=== PATIENT | female | born 1975 | race Caucasian/White ===

== ENCOUNTER 2022-12-16 06:55 | Day surgery (SDC) | payer OTHER ==
[~2022-12-16] VITALS: Ht 160 cm; Wt 56.7 kg
[2022-12-16] VITALS (224 sets, daily range): BP systolic 82–134; BP diastolic 42–87
[2022-12-16 07:51] LABS: BASO% 0.5 % (0-3); EOS% 4.3 % (0-8); HEMATOCRIT 45.1 % (37.0-47.0); HEMOGLOBIN 14.4 g/dl (12.0-16.0); IMMATURE GRANULOCYTES 0.2 % (0.0-5.0); LYMPH% 22.7 % (15-41); MEAN CELL VOLUME 96.2 fL CALC (80.0-100.0); MEAN CORPUSCULAR HGB 30.7 pG CALC (26.0-32.0); MEAN CORPUSCULAR HGB CONC 31.9 g/dL CAL (32.0-36.0); MONO% 7.1 % (2-13); NEUT# 3.93 thou/uL (2.00-7.15); NEUT% 65.2 % (42-76); RED BLOOD COUNT 4.69 mill/uL (4.20-5.60); RED CELL DISTRI WIDTH 12.1 % (11.5-15.5)
[2022-12-16 09:53] LABS: ALBUMIN 4.7 g/dL (3.2-5.0); ALKALINE PHOSPHATASE 64 u/l (38-126); ANION GAP 13 (6-22 (CALC)); BILIRUBIN, TOTAL 0.5 mg/dL (0.02-1.3); BUN 15 mg/dL (7-17); BUN/CREATININE RATIO 15 (12-20 (CALC)); CARBON DIOXIDE 29 mmol/l (22-30); CHLORIDE 102 mmol/l (95-108); GFR FOR AFR.AMER. > 60 ML/MIN (>=60 (CALC)); GFR OTHER RACES 60 ML/MIN (>=60 (CALC)); POTASSIUM 4.4 mmol/l (3.5-5.1); SGOT/AST 52 u/l (14-36); SODIUM 140 mmol/l (137-146)
[2022-12-16] MEDS ORDERED: NALTREXONE50 MG PO (16:15)
[2022-12-16] MEDS ORDERED: CLONIDINE0.1 MG PO (16:15)
[2022-12-16] MEDS ORDERED: KLONOPIN2 MG PO (16:16)
[2022-12-17 03:50] VITALS: BP 120/82
[2022-12-17 04:20] LABS: ALBUMIN 3.7 g/dL (3.2-5.0); ALKALINE PHOSPHATASE 56 u/l (38-126); ANION GAP 10 (6-22 (CALC)); BILIRUBIN, TOTAL 0.2 mg/dL (0.02-1.3); BUN 9 mg/dL (7-17); BUN/CREATININE RATIO 11 (12-20 (CALC)); CARBON DIOXIDE 25 mmol/l (22-30); CHLORIDE 110 mmol/l (95-108); CREATININE 0.8 mg/dL (0.5-1.0); GFR FOR AFR.AMER. > 60 ML/MIN (>=60 (CALC)); GFR OTHER RACES > 60 ML/MIN (>=60 (CALC)); MAGNESIUM 2.2 mg/dL (1.6-2.3); POTASSIUM 3.9 mmol/l (3.5-5.1); SGOT/AST 52 u/l (14-36); SODIUM 141 mmol/l (137-146); TOTAL PROTEIN 6.5 g/dL (6.3-8.2)
[2022-12-17 08:00] VITALS: BP 139/76
[2022-12-17 08:23] VITALS: BP 139/76
[2022-12-17 12:04] VITALS: BP 139/76
[2022-12-17 16:15] VITALS: BP 139/76
== END 2022-12-17 16:25 | disposition home or self-care (01) | DRG 897 ==
LOC: ANR 06:55 → MS2 06:55 → ANR 07:00
PROVIDERS: ATTEND Anesthesiology Critical Care Medicine
DX: F11.20 Opioid dependence, uncomplicated (principal)
CPT/HCPCS: J2354; J3475